=== PATIENT | male | born 1965 | race Caucasian/White ===

== ENCOUNTER → 2016-09-14 | Outpatient (CLI) | payer SELFPAY ==
[~2016-09-14] MED LIST: GLUCOPHAGE500 MG PO; LIPITOR80 MG PO; LISINOPRIL40 MG PO; LOPRESSOR50 MG PO; NAPROSYN500 MG PO; ZOCOR40 MG PO
== END | disposition short-term general hospital (02) ==
LOC: CLCARD 10:11
DX: I10 Essential (primary) hypertension (principal); E78.5 Hyperlipidemia, unspecified; E11.9 Type 2 diabetes mellitus without complications; E66.9 Obesity, unspecified

== ENCOUNTER → 2016-11-16 | Outpatient (CLI) | payer SELFPAY | END | disposition short-term general hospital (02) | LOC: CLCARD 11:02 | DX: I25.10 Atherosclerotic heart disease of native coronary artery without angina pectoris (principal); E11.9 Type 2 diabetes mellitus without complications; I10 Essential (primary) hypertension; E78.5 Hyperlipidemia, unspecified; E66.9 Obesity, unspecified; R20.0 Anesthesia of skin; Z95.1 Presence of aortocoronary bypass graft ==